=== PATIENT | male | born 1990 | race Caucasian/White ===

== ENCOUNTER 2017-05-31 22:51 | Emergency (ER) | payer OTHER ==
[2017-05-31 22:58] VITALS: O2SAT 97
[2017-05-31] MEDS ORDERED: Bacitracin 500 Units/gm Oint Foilpak UD TOP ONE (23:41)
[2017-05-31] MEDS ORDERED: Tdap Vaccine 0.5 ml Vial (10-64 yrs) IM ONE (23:41)
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
[2017-06-01] MEDS ORDERED: Tdap Vaccine 0.5 ml Vial (10-64 yrs) IM ONE (00:02)
[2017-06-01] MEDS ORDERED: Bacitracin 500 Units/gm Oint Foilpak UD ONE (00:02)
--- NOTE | 2017-06-01 00:45 | CT ---
EXAM: CT Head Without Intravenous Contrast CLINICAL HISTORY: 27 years old, male; Pain; Headache and other: Back head open wound; Additional info: Trauma TECHNIQUE: Axial computed tomography images of the head/brain without intravenous contrast. All CT scans at this facility use one or more dose reduction techniques, viz.: automated exposure control; ma/kV adjustment per patient size (including targeted exams where dose is matched to indication; i.e. head); or iterative reconstruction technique. Coronal and sagittal reformatted images were created and reviewed. COMPARISON: No relevant prior studies available. FINDINGS: Brain: No intracranial hemorrhage. No mass. Benjamin cisterna magna. No edema. Ventricles: No hydrocephalus. Bones/joints: No acute fracture. Soft tissues: Parietal soft tissue swelling. Sinuses: Scattered mild mucosal thickening of ethmoid sinuses. Mild focal mucosal thickening +/- fluid of RIGHT sphenoid sinus. Mastoid air cells: No mastoid effusion. Orbits: Unremarkable as visualized. IMPRESSION: 1. No intracranial hemorrhage. 2. Incidental/non-acute findings are described above.
[2017-06-01 01:05] VITALS: BP 140/70; PULSE 89; RESP 20; TEMP 98.5
== END 2017-06-01 01:20 | disposition home or self-care (01) ==
LOC: C.ER 22:51
DX: S09.90XA Unspecified injury of head, initial encounter (principal); S30.810A Abrasion of lower back and pelvis, initial encounter; S70.211A Abrasion, right hip, initial encounter; T14.8XXA Other injury of unspecified body region, initial encounter; V29.9XXA Motorcycle rider (driver) (passenger) injured in unspecified traffic accident, initial encounter; Z23 Encounter for immunization